=== PATIENT | female | born 1950 | race American Indian/Alaskan Native ===

== ENCOUNTER 2018-02-06 23:07 | Emergency (ER) | payer MEDICARE ==
[2018-02-06 23:16] VITALS: BMI 36.1
[2018-02-06 23:21] VITALS: RESP 18; TEMP 98.5; O2SAT 100
--- NOTE | 2018-02-06 23:51 | ED PDOC ---
Arrival/HPI - General Chief Complaint: High Blood Pressure Time Seen by Provider: 02/06/18 23:15 Historian: Patient, Family - History of Present Illness Narrative History of Present Illness (Text): 02/06/18 23:35 67 year old female, whose past medical history includes Hypertension, presents to the emergency department accompanied by family for evaluation of elevated blood pressure tonight. Patient reports her family checked her blood pressure with two different machines which read 220/112 and reports they were worried, so she decided to come in for evaluation. Patient reports an increase amount domestic stress due to loss of family member, but no depression / SI or HI . Patient also reports recent change in blood pressure medication from Losartan 100mg to Losartan/hydrochlorothiazide 100/25mg. She denies any current as sociated symptoms at this time. Patient denies any fever, chills, chest pain, headache, weakness, shortness of breath, abdominal pain, nausea, vomiting, diarrhea, urinary symptoms, back pain, neck pain, headache, dizziness, or any other complaints. PMD: Dr. Ross 02/07/18 02:07 Time/Duration: Prior to Arrival Symptom Onset: Gradual Activities at Onset: Light Context: Home Past Medical History - Provider Review Nursing Documentation Reviewed: Yes - Cardiac Hx Hypertension: Yes - Renal Other/Comment: "kidney being monitored" - Musculoskeletal/Rheumatological Hx Gout: Yes - Psychiatric Hx Substance Use: No - Anesthesia Hx Anesthesia: No Hx Anesthesia Reactions: No Hx Malignant Hyperthermia: No Family/Social History - Physician Review Nursing Documentation Reviewed: Yes Family/Social History: No Known Family HX Smoking Status: Never Smoked Hx Alcohol Use: Yes Frequency of alcohol use: Socially Hx Substance Use: No Allergies/Home Meds Allergies/Adverse Reactions: Allergies No Known Allergies Allergy (Verified 02/06/18 23:16) Home Medications: Home Meds Medication Instructions Recorded Confirmed Atorvastatin Calcium 40 mg PO HS 02/06/18 02/06/18 Losartan/Hydrochlorothiazide 1 tab PO DAILY 02/06/18 02/06/18 [Losartan-Hctz 100-25 mg Tab] RX: Allopurinol [Zyloprim] 300 mg PO DAILY 02/06/18 02/06/18 Review of Systems - Physician Review All systems were reviewed & negative as marked: Yes - Review of Systems Constitutional: absent: Fatigue, Weight Change, Fevers, Other (Chills) Eyes: absent: Vision Changes, Photophobia, Eye Pain ENT: absent: Hearing Changes, Tinnitus, TMJ Pain, Voice Changes, Sore Throat, Rhinorrhea, Epistaxis, Sinus Congestion Respiratory: absent: SOB, Cough, Sputum, Wheezing Cardiovascular: absent: Chest Pain, Palpitations, Edema, Calf Pain Gastrointestinal: absent: Abdominal Pain, Stool Changes, Constipation, Diarrhea, Nausea, Vomiting Genitourinary Female: absent: Dysuria, Frequency, Hematuria Musculoskeletal: absent: Back Pain, Neck Pain, Joint Swelling Skin: absent: Rash, Pruritis, Skin Lesions, Laceration, Abscess Neurological: absent: Headache, Dizziness, Focal Weakness, Gait Changes, Speech Changes, Facial Droop Endocrine: absent: Diaphoresis, Polyuria, Polydipsia Physical Exam Vital Signs Reviewed: Yes Vital Signs Temp Pulse Resp BP Pulse Ox 02/06/18 23:20 98.5 F 99 H 18 161/108 H 100 Temperature: Afebrile Blood Pressure: Hypertensive Pulse: Tachycardic Respiratory Rate: Normal Appearance: Positive for: Well-Appearing, Non-Toxic, Comfortable Pain Distress: None Mental Status: Positive for: Alert and Oriented X 3 - Systems Exam Head: Present: Atraumatic, Normocephalic Pupils: Present: PERRL Extroacular Muscles: Present: EOMI Conjunctiva: Present: Normal Ears: Present: Normal Mouth: Present: Moist Mucous Membranes Pharnyx: Present: Normal. No: ERYTHEMA Nose (External): Present: Atraumatic Nose (Internal): Present: Normal Inspection Neck: Present: Normal Range of Motion. No: Meningeal Signs Respiratory/Chest: Present: Clear to Auscultation, Good Air Exchange. No: Respiratory Distress, Accessory Muscle Use Cardiovascular: Present: Regular Rate and Rhythm, Normal S1, S2. No: Murmurs Abdomen: No: Tenderness, Distention, Peritoneal Signs Back: Present: Normal Inspection. No: CVA Tenderness, Midline Tenderness Upper Extremity: Present: Normal Inspection, NORMAL PULSES, Neurovascularly Intact. No: Cyanosis, Edema Lower Extremity: Present: Normal Inspection, NORMAL PULSES, Neurovascularly Intact. No: Edema, CALF TENDERNESS, Swelling Neurological: Present: GCS=15, CN II-XII Intact, Speech Normal, Motor Func Grossly Intact, Normal Sensory Function, Normal Cerebellar Funct, Gait Normal, Memory Normal Skin: Present: Warm, Dry, Normal Color. No: Rashes Psychiatric: Present: Alert, Oriented x 3, Normal Insight, Normal Concentration Medical Decision Making ED Course and Treatment: Impression: 67 year old female presents for evaluation of elevated blood pressure tonight. Patient denies any other complaints. No abdominal pain, constipation or diarrhea. No headache, nausea or vomiting. No AMS. No fall or trauma. No weakness, no FND. Normal neuro exam. No decreased urinary output or GI or complaints. Asymptomatic HTN w/ current HTN not warranting hypertensive urgency or emergency. Plan: -- disposition Progress Notes: 02/06/18 23:50 The patient is in no acute distress. I have discussed the plan with the patient, who expresses understanding. Patient given the opportunity to ask question, all questions were answered and there is agreement with the plan to discharge the patient home. Patient is stable for discharge. Patient was instructed to follow up with physician/clinic in 1-2 days or return if symptoms persist/worsen or new concerning symptoms arise. - Scribe Statement The provider has reviewed the documentation as recorded by the Aristides Brown Provider Scribe Attestation: All medical record entries made by the Aristides were at my direction and personally dictated by me. I have reviewed the chart and agree that the record accurately reflects my personal performance of the history, physical exam, medical decision making, and the department course for this patient. I have also personally directed, reviewed, and agree with the discharge instructions and disposition. Disposition/Present on Arrival - Present on Arrival Any Indicators Present on Arrival: No History of DVT/PE: No History of Uncontrolled Diabetes: No Urinary Catheter: No History of Decub. Ulcer: No History Surgical Site Infection Following: None - Disposition Have Diagnosis and Disposition been Completed?: Yes Diagnosis: Asymptomatic hypertension Disposition: HOME/ ROUTINE Disposition Time: 23:50 Condition: GOOD Discharge Instructions (ExitCare): High Blood Pressure in Adults, High Blood Pressure (DC), Controlling Your Blood Pressure Through Lifestyle Additional Instructions: COME BACK IF YOUR PRESSURE IS ELEVATED AGAIN OR IF YOU ARE HAVING SYMPTOMS. TRY TO DECREASE THE AMOUNT OF COFFEE YOU DRINK DEB GUTIERRES, thank you for letting us take care of you today. Your provider was Ronaldo Stover and you were treated for HIGH BLOOD PRESSURE. The emergency medical care you received today was directed at your acute symptoms. If you were prescribed any medication, please fill it and take as directed. It may take several days for your symptoms to resolve. Return to the Emergency Department if your symptoms worsen, do not improve, or if you have any other problems. Please contact your doctor or call one of the physicians/clinics you have been referred to that are listed on the Patient Visit Information form that is included in your discharge packet. Bring any paperwork you were given at discharge with you along with any medications you are taking to your follow up visit. Our treatment cannot replace ongoing medical care by a primary care provider outside of the emergency department. Thank you for allowing the [facility] team to be part of your care today. If you had an X-Ray or CT scan: A Radiologist will review the ED reading if any change in treatment is needed we will contact you. If you had a blood, urine, or wound culture: It will take several days for the results, if any change in treatment is needed we will contact you. If you had an STI test: It will take 48 hours for the results. Please call after 1 week if you have not heard back. Referrals: [facility] [Outside] - Follow up with primary [facility] [Outside] - Follow up with primary Gail Ross MD [Family Provider] - Follow up with primary Forms: [facility] ([place]ese)
[2018-02-07 00:01] VITALS: BP 158/89; PULSE 94
== END 2018-02-06 23:50 | disposition home or self-care (01) ==
LOC: MERGE 23:07 → ED 23:07
DX: I10 Essential (primary) hypertension (principal)